=== PATIENT | male | born 1975 | race Caucasian/White ===

== ENCOUNTER 2017-05-17 13:25 | Emergency (ER) | payer BC ==
[2017-05-17 14:13] VITALS: BP 120/85
--- NOTE | 2017-05-17 14:18 | UC ---
Respiratory Complaint HPI - HPI Summary HPI Summary: 42 year old male with cough Head congestion and cough for 6 days, then improved. Yesterday congestion moved to chest, cough worsened and now SOB with exertion. was given dx of pneumonia/bronchitis here 05/10/17. Has similar sx. no CP. also with sinus pressure that has worsened over the past 1-1 weeks. [ End ] - History of Current Complaint Chief Complaint: UCRespiratory Stated Complaint: COUGH,LINDA Time Seen by Provider: 05/17/17 14:16 Hx Obtained From: Patient Onset/Duration: Gradual Onset Timing: Constant Severity Initially: Moderate Pain Intensity: 0 Character: Cough: Productive Associated Signs And Symptoms: Positive: Negative, Dyspnea - Allergies/Home Medications Allergies/Adverse Reactions: Allergies Allergy/AdvReac Type Severity Reaction Status Date / Time Doxycycline Allergy Hives Verified 05/17/17 14:01 Penicillins Allergy Hives Verified 05/17/17 14:01 Sulfamethoxazole Allergy Swelling Verified 05/17/17 14:01 w/Trimethoprim Of [From Bactrim] Face,Lips,& Throat Home Medications: Home Medications [employer]'s Cider Vinegar 1 teasp PO DAILY 05/17/17 [History Confirmed 05/17/17] PMH/Surg Hx/FS Hx/Imm Hx Previously Healthy: Yes - Surgical History Surgical History: Yes Surgery Procedure, Year, and Place: appy - Family History Known Family History: Positive: None - no autimmune disorders. No diabetes. No HTN or cardiac dz - Social History Occupation: Employed Full-time Lives: With Family Alcohol Use: Occasionally Substance Use Type: None Smoking Status (MU): Former Smoker Type: Cigarettes When Did the Patient Quit Smoking/Using Tobacco: 7 years ago - Immunization History Most Recent Influenza Vaccination: unsure Review of Systems Constitutional: Fatigue ENT: Nasal Discharge, Sinus Congestion, Sinus Pain/Tenderness Respiratory: Shortness Of Breath, Cough Is Patient Immunocompromised?: No All Other Systems Reviewed And Are Negative: Yes Physical Exam Triage Information Reviewed: Yes Appearance: Well-Appearing, No Pain Distress, Well-Nourished Vital Signs: Initial Vital Signs Temp 98.4 F 05/17/17 14:04 Pulse 84 05/17/17 14:04 Resp 18 05/17/17 14:04 BP 120/85 05/17/17 14:04 Pulse Ox 97 01/25/18 14:04 Vital Signs Reviewed: Yes Eye Exam: Normal ENT Exam: Normal ENT: Positive: Nasal congestion, Nasal drainage, Sinus tenderness - frontal Dental Exam: Normal Neck exam: Normal Neck: Positive: 1 Respiratory Exam: Normal Cardiovascular Exam: Normal Musculoskeletal Exam: Normal Neurological Exam: Normal Psychological Exam: Normal Skin Exam: Normal UC Diagnostic Evaluation - Laboratory O2 Sat by Pulse Oximetry: 97 Respiratory Course/Dx - Course Course Of Treatment: With recent exposure to illness with of bronchitis requiring antibiotics will treat at this time for sinusitis and to prevent worsening infection. he is aware. has multiple allergies. has tolerated the z pack and he has requested it today - Differential Dx/Diagnosis Differential Diagnosis/HQI/PQRI: Bronchitis, Lower Resp Infection, Sinusitis Provider Diagnoses: sinusitis Discharge - Discharge Plan Condition: Good Disposition: HOME Prescriptions: Azithromycin TAB* [Zithromax TAB (Z-EDDIE) 250 mg #6 tabs] 2 tab PO .TODAY, THEN 1 DAILY #1 eddie Patient Education Materials: Sinusitis (ED) Referrals: Cayetano Chan MD [Primary Care Provider] - 4 Days
== END 2017-05-17 14:28 | disposition home or self-care (01) ==
LOC: UCCORT 13:25
DX: J32.9 Chronic sinusitis, unspecified (principal); Z87.891 Personal history of nicotine dependence
CPT/HCPCS: 99212; G0463

== ENCOUNTER 2017-08-27 13:46 | Emergency (ER) | payer BC ==
[2017-08-27 14:12] VITALS: BP 118/78
--- NOTE | 2017-08-27 14:31 | UC ---
Knee Pain HPI - HPI Summary HPI Summary: Pt c/o left knee pain and instability s/p getting left upper leg and knee stuck between truck door and loading dock. Pt states that left knee feels unstable as though it is going to "give out" on him and pain in left upper thigh. - History of Current Complaint Chief Complaint: UCLowerExtremity Stated Complaint: LEFT KNEE INJURY Time Seen by Provider: 08/27/17 14:11 Hx Obtained From: Patient Onset/Duration: Sudden Onset, Still Present Severity Initially: Moderate Severity Currently: Mild Pain Intensity: 4 Character: Aching Aggravating Factor(s): Weight Bearing, Prolonged Standing Alleviating Factor(s): Position Associated Signs And Symptoms: Positive: Weakness Able to Bear Weight: Yes - Risk Factors Septic Arthritis Risk Factor: Negative Gout Risk Factor: Age ^ 39, Male - Allergies/Home Medications Allergies/Adverse Reactions: Allergies Allergy/AdvReac Type Severity Reaction Status Date / Time doxycycline Allergy Hives Verified 08/27/17 14:13 Penicillins Allergy Hives Verified 08/27/17 14:13 sulfamethoxazole Allergy Swelling Verified 08/27/17 14:13 Of Face,Lips,& Throat trimethoprim Allergy Swelling Verified 08/27/17 14:13 Of Face,Lips,& Throat PMH/Surg Hx/FS Hx/Imm Hx Previously Healthy: Yes - Surgical History Surgical History: Yes Surgery Procedure, Year, and Place: appy - Family History Known Family History: Positive: Cardiac Disease - Social History Occupation: Employed Full-time Lives: With Family Alcohol Use: Occasionally Substance Use Type: None Smoking Status (MU): Former Smoker Type: Cigarettes Have You Smoked in the Last Year: No When Did the Patient Quit Smoking/Using Tobacco: 2007 - Immunization History Most Recent Influenza Vaccination: unsure Review of Systems Constitutional: Negative Skin: Negative Eyes: Negative ENT: Negative Respiratory: Negative Cardiovascular: Negative Gastrointestinal: Negative Genitourinary: Negative Motor: Weakness - left knee Neurovascular: Negative Musculoskeletal: Arthralgia - left knee, Calf Tenderness, Myalgia - left knee Psychological: Negative Is Patient Immunocompromised?: No All Other Systems Reviewed And Are Negative: Yes Physical Exam Triage Information Reviewed: Yes Appearance: Well-Appearing Vital Signs: Initial Vital Signs Temp 98.1 F 08/27/17 14:07 Pulse 82 08/27/17 14:07 Resp 18 08/27/17 14:07 BP 118/78 08/27/17 14:07 Pulse Ox 99 08/27/17 14:07 Vital Signs Reviewed: Yes Eye Exam: Normal ENT: Positive: Hearing grossly normal Neck exam: Normal Respiratory: Positive: No respiratory distress Musculoskeletal Exam: Other Musculoskeletal: Positive: ROM Limited @ - left knee c/o pain, Other: - left knee MCL weakness Neurological Exam: Normal Psychological Exam: Normal Skin Exam: Normal Diagnostics - Radiology No standard instances Radiology Interpretation Completed By: Radiologist - 4 views of left knee demonstrates no fracture. No joint effusion is noted. No other bone or joint abnormality is noted. IMPRESSION: No fracture of the left knee. Knee Pain Course/Dx - Course Course Of Treatment: 4 views of left knee demonstrates no fracture. No joint effusion is noted. No other bone. or joint abnormality is noted. IMPRESSION: No fracture of the left knee. - Differential Dx/Diagnosis Differential Diagnosis/HQI/PQRI: Sprain, Strain Provider Diagnoses: left knee strain Discharge - Sign-Out/Discharge Documenting (check all that apply): Discharge/Admit/Transfer - Discharge Plan Condition: Stable Disposition: HOME Patient Education Materials: Knee Sprain (DC), Knee Pain (ED), R.I.C.E. Treatment (ED) Referrals: Donny Richard [Medical Doctor] - If Needed Deven Carcamo MD [Medical Doctor] - If Needed Cayetano Chan MD [Primary Care Provider] - Additional Instructions: Please follow up with your PCP or return to clinic as needed. Please note we have provided referral to other [facility] providers for you to follow up with as needed. you will need to make an appointment with each of these doctors as needed. - Billing Disposition and Condition Condition: STABLE Disposition: HOME
--- NOTE | 2017-08-27 14:46 | RAD ---
Indication: Left knee injury. 4 views of left knee demonstrates no fracture. No joint effusion is noted. No other bone or joint abnormality is noted. IMPRESSION: No fracture of the left knee.
== END 2017-08-27 15:10 | disposition home or self-care (01) ==
LOC: UCCORT 13:46
DX: S83.92XA Sprain of unspecified site of left knee, initial encounter (principal); W23.0XXA Caught, crushed, jammed, or pinched between moving objects, initial encounter; Y93.9 Activity, unspecified; Y92.9 Unspecified place or not applicable; Z88.1 Allergy status to other antibiotic agents; Z88.0 Allergy status to penicillin; Z87.891 Personal history of nicotine dependence
CPT/HCPCS: 99211; G0463

== ENCOUNTER 2023-05-14 05:37 | Inpatient (IN) ==
[~2023-05-14 05:37] MED LIST: Buffered Lidocaine 1% SYRIN 1 ml INTRADERM ONE; Gentamicin ADULT 330 MG in NS 0.9% 100 ml BAG 100 ML IVPB SCH; Lactated Ringers 1000 ml BAG 1,000 ML IV SCH; Scopolamine 1 mg/72hr PATCH TRANSDERM ONE
[2023-05-14] MEDS ORDERED: Scopolamine 1 mg/72hr PATCH ONE (06:26)
[2023-05-14] MEDS ORDERED: Clindamycin 900 MG/50 **NS BAG 900 MG/50 ML BAG ONE (06:27)
[2023-05-14 06:43] LABS: Rapid COVID-19 Molecular Undetected (Undetected)
[2023-05-14] MEDS ORDERED: Rocuronium 50 mg VIAL 10 mg/ml 5 ml VIAL (50 mg) ONE ×3 (07:14→10:15)
[2023-05-14] MEDS ORDERED: Midazolam 2 mg/2 ml VIAL 1 mg/ml 2 ml VIAL (2 mg) ONE (07:14)
[2023-05-14] MEDS ORDERED: Lidocaine 2% PF 5 ML VIAL ONE (07:14)
[2023-05-14] MEDS ORDERED: Desflurane 240 ML INH ONE (07:14)
[2023-05-14] MEDS ORDERED: Propofol 10 MG/ML 20 ML BTL ONE (07:14)
[2023-05-14] MEDS ORDERED: Glycopyrrolate IV 0.2 MG/ML 1 ML VIAL ONE (07:14)
[2023-05-14] MEDS ORDERED: Succinylcholine 200 mg VIAL 20 mg/ml 10 ml VIAL (200 mg) ONE (07:14)
[2023-05-14] MEDS ORDERED: fentaNYL 250 mcg/5 ml 50 MCG/ML 5 ml VIAL (250 MCG) ONE (07:16)
[2023-05-14] MEDS ORDERED: Bupivacaine 0.25% SDV 30 ML ONE (07:23)
[2023-05-14] MEDS ORDERED: Lidocaine 1% w EPI 1:200,000 SDV 30 ML VIAL ONE (07:23)
[2023-05-14] MEDS ORDERED: Esmolol 10 MG/ML 10 ML (100 mg) IV ONE (08:11)
[2023-05-14] MEDS ORDERED: Ondansetron 4 mg VIAL 2 MG/ML 2 ml VIAL IV PRN ×2 (09:29→12:48)
[2023-05-14] MEDS ORDERED: fentaNYL 100 mcg/2 ml 50 MCG/ML VIAL IV PRN (09:29)
[2023-05-14] MEDS ORDERED: Naloxone 0.4 mg VIAL 0.4 mg/ml 1 ml VIAL IV PRN ×2 (09:29)
[2023-05-14] MEDS ORDERED: Metoclopramide 5 MG/ML VIAL (10 mg) IV PRN (09:29)
[2023-05-14] MEDS ORDERED: HYDROmorphone 0.5 MG/0.5 ML SYRINGE ONE (11:06)
[2023-05-14] MEDS ORDERED: Ondansetron 4 mg VIAL 2 MG/ML 2 ml VIAL ONE (12:38)
[2023-05-14] MEDS ORDERED: fentaNYL 100 mcg/2 ml 50 MCG/ML VIAL ONE (12:38)
[2023-05-14] MEDS ORDERED: Metoclopramide 5 MG/ML VIAL (10 mg) ONE (12:38)
[2023-05-14] MEDS ORDERED: HYDROmorphone 1 MG/1 ML SYRINGE IV SLOW PU PRN (12:48)
[2023-05-14] MEDS ORDERED: HYDROmorphone 0.5 MG/0.5 ML SYRINGE IV SLOW PU PRN (12:48)
[2023-05-14] MEDS ORDERED: Heparin 5000 UNITS/ML 1 mL VIAL SUBCUT SCH (14:00)
[2023-05-14] MEDS: Acetaminophen IV 1 GM/100ML 1,000 MG/100 ML BAG IV SCH ×2 (14:49→20:48)
[2023-05-14] MEDS ORDERED: NS 0.9% 1000 ml BAG 1,000 ML IV ONE (17:10)
[2023-05-15] MEDS: Acetaminophen IV 1 GM/100ML 1,000 MG/100 ML BAG IV SCH ×4 (03:23→21:27)
[2023-05-15 06:07] LABS: ABS Lymphocytes 1.1 10^3/uL (1.0-4.8); ABS Monocytes 1.3 10^3/uL (0.0-1.1); ABS Neutrophils 10.5 10^3/uL (1.5-7.6); Hematocrit 39.1 % (38-53); Hemoglobin 13.3 g/dL (13.2-16.3); Lymphocyte % 8.4 %; Mean Corpuscular Hemoglobin 31.2 pg (27-33); Mean Corpuscular Hgb Conc 33.9 g/dL (31-36); Mean Corpuscular Volume 91.9 fL (80-97); Mean Platelet Volume 7.9 fL (7.5-11.2); Platelet Count 234 10^3/uL (150-450); Red Blood Count 4.26 10^6/uL (4.06-5.63); White Blood Count 12.9 10^3/uL (3.6-10.2)
[2023-05-15 06:23] LABS: Calcium 8.7 mg/dL (8.6-10.3); Creatinine, Serum 0.98 mg/dL (0.67-1.17); Potassium 4.3 mmol/L (3.5-5.0); eGFR CKD-EPI 94.5 (>60)
[2023-05-15] MEDS ORDERED: HYDROmorphone 0.5 MG/0.5 ML SYRINGE IV SLOW PU PRN (07:20)
[2023-05-15] MEDS: Enoxaparin 40 MG/0.4 ML SYR SUBCUT SCH (08:43)
[2023-05-16] MEDS: Acetaminophen IV 1 GM/100ML 1,000 MG/100 ML BAG IV SCH ×4 (03:56→21:30)
[2023-05-16] MEDS: Enoxaparin 40 MG/0.4 ML SYR SUBCUT SCH (08:59)
[2023-05-17] MEDS: Acetaminophen IV 1 GM/100ML 1,000 MG/100 ML BAG IV SCH ×2 (04:03→09:35)
[2023-05-17] MEDS: Enoxaparin 40 MG/0.4 ML SYR SUBCUT SCH (09:34)
[2023-05-17 10:02] VITALS: BP 125/83
== END 2023-05-17 13:20 | disposition home or self-care (01) | DRG 221 ==
LOC: AA 05:37 → SSU 12:23
PROVIDERS: ADMIT Surgery; ATTEND Surgery